=== PATIENT | male | born 1955 | race Caucasian/White ===

== ENCOUNTER 2016-10-14 18:02 | Inpatient (IN) | payer OTHER ==
[~2016-10-14] VITALS: Ht 165.1 cm; Wt 82.6 kg
[~2016-10-14 18:02] MED LIST: GABA100C4 PO; SAW160TA PO; VALA500T PO
[2016-10-14 19:39] VITALS: BP 137/93; PULSE 81; RESP 18; TEMP 98.3; O2SAT 96
[2016-10-14 20:00] LABS: AUTOMATED NEUTROPHIL # 3.2 TH/MM3 (1.8-7.7); BASOPHIL % 0.6 % (0.0-2.0); EOSINOPHIL # 0.1 TH/MM3 (0-0.4); EOSINOPHIL % 1.2 % (0.0-4.0); HEMATOCRIT 37.7 % (39.0-51.0); HEMO FLAGS DIFF FINAL; LYMPHOCYTE # 2.1 TH/MM3 (1.0-4.8); MEAN CELL VOLUME 86.5 FL (80.0-100.0); MEAN CORPUSCULAR HEMOGLOBIN 29.1 PG (27.0-34.0); MEAN CORPUSCULAR HGB CONC 33.6 % (32.0-36.0); MONO % 13.5 % (0.0-8.0); NEUT % 51.7 % (16.0-70.0); PLATELET COUNT 171 TH/MM3 (150-450); RED BLOOD COUNT 4.36 MIL/MM3 (4.50-5.90); RED CELL DISTRIBUTION WIDTH 13.5 % (11.6-17.2); WHITE BLOOD COUNT 6.2 TH/MM3 (4.0-11.0)
[2016-10-14 20:23] LABS: ALKALINE PHOSPHATASE 73 U/L (45-117); ALT (GPT) 100 U/L (12-78); ANION GAP 8 MEQ/L (5-15); AST (GOT) 140 U/L (15-37); BICARBONATE 27.3 MEQ/L (21.0-32.0); BLOOD UREA NITROGEN 16 MG/DL (7-18); CHLORIDE 98 MEQ/L (98-107); GLOMERULAR FILTRATION RATE 78 ML/MIN (>89); SODIUM (NA) 133 MEQ/L (136-145); TOTAL BILIRUBIN ADULT 0.4 MG/DL (0.2-1.0)
[2016-10-14 20:32] LABS: POTASSIUM 4.6 MEQ/L (3.5-5.1)
--- NOTE | 2016-10-14 20:53 | PD ---
HPI Chief Complaint: Psychiatric Symptoms Time Seen by Provider: 20:46 Travel History International Travel<30 days: No Contact w/Intl Traveler<30days: No Traveled to known affect area: No History of Present Illness HPI 61-year-old male that presents to the ED for evaluation psychiatric evaluation. [facility] to [facility] and suicidal ideation. Per patient she's lost multiple people his family recently. Per patient this is exacerbating his depression. Patient is also states having some alcohol abuse. Denies any drugs. No chest pain or shortness of breath. States that he has no plan but feels depressed. Per patient he symptoms are moderate. Nothing makes them better or worse. He is never taken anything for this. Allergy to sulfa. PFSH Past Medical History Genitourinary: Yes (prostate ) Psychiatric: Yes (ptsd) ?: Not Past Surgical History Other Surgery: Yes (rib fractures; left knee repair) Social History Alcohol Use: Yes (etoh abuse) Tobacco Use: Yes (ppd) Substance Use: Yes (6 pack beer/day) Allergies-Medications (Allergen,Severity, Reaction): Coded Allergies: Sulfa (Unverified Allergy, Mild, HIVES, 01/30/16) Reported Meds & Prescriptions Reported Meds & Active Scripts Active Gabapentin 100 Mg Cap 100 Mg PO TID PRN 7 Days Valacyclovir Hcl (Valacyclovir HCl) 500 Mg Tab 1,000 Mg PO Q8HR 7 Days Reported Saw [place] 160 Mg Tab 160 Mg PO DAILY Review of Systems General / Constitutional: No: Fever, Chills, Weight Gain, Weight Loss, Other Eyes: No: Diploplia, Blurred Vision, Photophobia, Drainage, Redness, Foreign Body Sensation, Pain, Tearing, Blind Spots, Visual changes, Blindness, Other HENT: No: Headaches, Vertigo, Lightheadedness, Sore Throat, Rhinitis, Rhinorrhea, Congestion, Nosebleed, Neck Stiffness, Neck Pain, Masses, Gingival Bleeding, Dental Difficulties, Ear Discharge, Earache, Other Cardiovascular: No: Chest Pain or Discomfort, Palpitations, Irregular Rhythm, Tachycardia, Diaphoresis, Syncope, Dyspnea on exertion, Varicosities, Edema, Cyanosis, Varicosities, Phlebitis, Claudication, Other Respiratory: No: Cough, Shortness of Breath, Wheezing, Sneezing, Orthopnea, Hemoptysis, Stridor, Night Sweats, Pleuritic Pain, Other Gastrointestinal: No: Nausea, Vomiting, Diarrhea, Abdominal Pain, Hematemesis, Hematochezia, Constipation, Changes in Bowel Habits, Indigestion, Dysphagia, Loss of Appetite, Other Genitourinary: No: Urgency, Frequency, Dysuria, Nocturia, Hematuria, Decreased Urinary Output, Oliguria, Hesitancy, Dribbling, Incontinence, Pelvic Pain, Flank Pain, Dyspareunia, Discharge, Dysmenorrhea, Menorrhagia, Metorrhagia, Vaginal Bleeding, Other Musculoskeletal: No: Myalgias, Arthralgias, Limited ROM, Weakness, Cramping, Edema, Pain, Atrophy, Other Skin: No Rash, No Itching, No Dryness, No Lumps, No Hives, No Change in Pigmentation, No Change in nails, No Alopecia, No Lesions, No Breast Lumps, No Breast Tenderness, No Breast Swelling, No Other Neurologic: No: Weakness, Dizziness, Syncope, Focal Abnormalities, Coordination Problem, Tremor, Ataxia, Headache, Change in Mentation, Slurred Speech, Paresthesia, Incontinence, Seizures, Sensory Disturbance, Other Psychiatric: Positive: Depression, Suicidal Ideations, Substance Abuse, No: Anxiety, Disorder of Thought, Mood Disorder, Homicidal Ideation, Other Endocrine: No: Heat Intolerance, Cold Intolerance, Polyuria, Polydipsia, Other Hematologic/Lymphatic: No: Easy Bruising, Lymph Node Enlargement, Other Physical Exam Narrative GENERAL: SKIN: Warm and dry. HEAD: Atraumatic. Normocephalic. EYES: Pupils equal and round. No scleral icterus. No injection or drainage. ENT: No nasal bleeding or discharge. Mucous membranes pink and moist. NECK: Trachea midline. No JVD. CARDIOVASCULAR: Regular rate and rhythm. No murmurs, S3, S4. RESPIRATORY: No accessory muscle use. Clear to auscultation. Breath sounds equal bilaterally. GASTROINTESTINAL: Abdomen soft, non-tender, nondistended. Hepatic and splenic margins not palpable. MUSCULOSKELETAL: Extremities without clubbing, cyanosis, or edema. No obvious deformities. Full range of motion of the upper and lower extremities bilaterally. 2+ pulses bilaterally. NEUROLOGICAL: Awake and alert. No obvious cranial nerve deficits. Motor grossly within normal limits. Five out of 5 muscle strength in the arms and legs. Normal speech. PSYCHIATRIC: Appropriate mood and affect; insight and judgment normal. Data Data Last Documented VS Vital Signs Date Time Temp Pulse Resp B/P Pulse Ox O2 Delivery O2 Flow Rate FiO2 10/14/16 19:39 98.3 81 18 137/93 96 Orders Complete Blood Count With Diff (10/14/16 19:41) Comprehensive Metabolic Panel (10/14/16 19:41) Psych Screen (10/14/16 19:41) Drug Screen, Random Urine (10/14/16 19:41) Alcohol (Ethanol) (10/14/16 19:41) Labs Laboratory Tests Test 10/14/16 19:51 White Blood Count 6.2 TH/MM3 Red Blood Count 4.36 MIL/MM3 Hemoglobin 12.7 GM/DL Hematocrit 37.7 % Mean Corpuscular Volume 86.5 FL Mean Corpuscular Hemoglobin 29.1 PG Mean Corpuscular Hemoglobin 33.6 % Concent Red Cell Distribution Width 13.5 % Platelet Count 171 TH/MM3 Mean Platelet Volume 9.8 FL Neutrophils (%) (Auto) 51.7 % Lymphocytes (%) (Auto) 33.0 % Monocytes (%) (Auto) 13.5 % Eosinophils (%) (Auto) 1.2 % Basophils (%) (Auto) 0.6 % Neutrophils # (Auto) 3.2 TH/MM3 Lymphocytes # (Auto) 2.1 TH/MM3 Monocytes # (Auto) 0.8 TH/MM3 Eosinophils # (Auto) 0.1 TH/MM3 Basophils # (Auto) 0.0 TH/MM3 CBC Comment DIFF FINAL Differential Comment Sodium Level 133 MEQ/L Potassium Level 4.6 MEQ/L Chloride Level 98 MEQ/L Carbon Dioxide Level 27.3 MEQ/L Anion Gap 8 MEQ/L Blood Urea Nitrogen 16 MG/DL Creatinine 0.98 MG/DL Estimat Glomerular Filtration 78 ML/MIN Rate Random Glucose 84 MG/DL Calcium Level 8.2 MG/DL Total Bilirubin 0.4 MG/DL Aspartate Amino Transf 140 U/L (AST/SGOT) Alanine Aminotransferase 100 U/L (ALT/SGPT) Alkaline Phosphatase 73 U/L Total Protein 8.6 GM/DL Albumin 3.6 GM/DL Ethyl Alcohol Level 72 MG/DL MDM Medical Decision Making Medical Screen Exam Complete: Yes Emergency Medical Condition: Yes Medical Record Reviewed: Yes Interpretation(s) CBC & BMP Diagram 10/14/16 19:51 LFTs elevated. Alcohol in the 70s Differential Diagnosis Depression versus suicidal ideation versus anxiety versus adjustment disorder versus mood disorder versus bipolar disorder versus schizophrenia versus paranoid disorder versus psychosis versus substance abuse versus alcohol abuse versus alcohol induced psychosis versus homicidality addition versus cutting versus personality disorder Narrative Course 61-year-old male that presents to the ED for eval of psychiatric illness. Patient was properly examined and was found to have signs and symptoms consistent with psychiatric disease. No sign of acute medical distress. Labs were drawn. Patient was medically clear. Okay to be seen by psych. Mental health screening was discussed with the patient. Diagnosis Primary Impression: Depression Qualified Code: F33.1 - Moderate episode of recurrent major depressive disorder Lico Melgoza Oct 14, 2016 20:53
[2016-10-14] MEDS ORDERED: CYCL5TAB PO (23:27)
[2016-10-14] MEDS ORDERED: MELO7.5T4 PO (23:27)
[2016-10-14] MEDS ORDERED: TERA10CA3 PO (23:29)
[2016-10-14] MEDS ORDERED: CENTTAB8 PO (23:29)
[2016-10-14] MEDS ORDERED: CLOTR1%T TOPICAL (23:29)
[2016-10-14] MEDS ORDERED: SILD20TA11 PO (23:29)
[2016-10-14 23:50] LABS: AMPHETAMINE, URINE NEG (NEG); BARBITURATES, URINE NEG (NEG); COCAINE, URINE NEG (NEG)
[2016-10-15] MEDS ORDERED: GABA100C4 PO (00:24)
[2016-10-15 02:08] VITALS: BP 145/79; PULSE 74; RESP 19; O2SAT 97
[2016-10-15 06:28] VITALS: BP 174/84; PULSE 91; RESP 18; O2SAT 97
[2016-10-15] MEDS ORDERED: diphenhydrAMINE HCL 50 MG CAP - HS PRN PO (09:15)
[2016-10-15] MEDS ORDERED: ALUMINUM/MAGNESIUM/SIMETH 30 ML CUP PO PRN ×2 (09:15→16:00)
[2016-10-15] MEDS ORDERED: LORazepam 1 MG TAB PO PRN (09:15)
[2016-10-15] MEDS ORDERED: ACETAMINOPHEN 325 MG TAB PO PRN ×2 (09:15→16:00)
[2016-10-15] MEDS ORDERED: diphenhydrAMINE HCL 50 MG/ML VIAL - HS PRN IM (09:15)
[2016-10-15] MEDS ORDERED: hydrOXYzine HCL 50 MG TAB PO PRN (09:15)
[2016-10-15] MEDS ORDERED: MAGNESIUM HYDROXIDE SUSP 30 ML CUP PO PRN ×2 (09:15→16:00)
[2016-10-15] MEDS ORDERED: LORazepam 2 MG/ML VIAL IM PRN (09:15)
[2016-10-15] MEDS ORDERED: PILL SPLITTER OTHER PRN (09:30)
[2016-10-15 09:40] VITALS: BP 154/85; PULSE 68; RESP 14; TEMP 98.3; O2SAT 96
[2016-10-15] MEDS ORDERED: CYCLOBENZAPRINE HCL 10 MG TAB PO PRN (10:00)
[2016-10-15] MEDS ORDERED: MISOPROSTOL 200 MCG TAB PR ONE (10:00)
[2016-10-15] MEDS ORDERED: GABAPENTIN 100 MG CAP PO PRN (10:00)
[2016-10-15] MEDS: MELOXICAM 7.5 MG TAB PO SCH (11:09)
[2016-10-15] MEDS: NICOTINE 21 MG/24 HR PATCH T-DERMAL SCH (11:11)
[2016-10-15] MEDS ORDERED: FLUMAZENIL 0.5 MG/5 ML VIAL IV PUSH PRN (15:30)
[2016-10-15] MEDS ORDERED: LORazepam 2 MG/ML VIAL IV PUSH PRN ×4 (15:30)
--- NOTE | 2016-10-15 15:57 | HHI.HP ---
Provisional Diagnosis Admission Date Oct 15, 2016 at 08:37 [place]. Bipolar disorder 1 most recent episode mixed severe without psychosis F 31.63 alcohol abuse, opiate abuse Certification of Person's Competence To Provide Express and Informed Consent I have personally examined Girma Jensen , a person being served at [email or web address] on, Oct 15, 2016 15:37. Express and informed consent means consent voluntarily given in writing, by a competent person, after sufficient explanation and disclosure of the subject matter involved to enable the person to make a knowing and willful decision without any element of force, fraud, deceit, duress, or other form of constraint or coercion. This person is 18 years of age or older, is not now known to be incompetent to consent to treatment with a guardian advocate, and does not have a health care surrogate or proxy currently making medical treatment decisions. I have found this person to be one of the following: [] Competent to provide express and informed consent, as defined above, for voluntary admission to this facility and is competent to provide express and informed consent for treatment. He/she has the consistent capacity to make well reasoned, willful, and knowing decisions concerning his or her medical or mental health treatment. The person fully and consistently understands the purpose of the admission for examination/placement and is fully capable of personally exercising all rights assured [place] Incompetent to provide express and informed consent to voluntary admission, and this is incompetent to provide express and informed consent to treatment. The person must be transferred to involuntary status and a petition for a guardian advocate filed with the Circuit Court. [x] Refusing to provide express and informed consent to voluntary admission but is competent to provide express and informed consent for treatment. The person must be discharged or transferred to involuntary status. Form shall be completed within 24 hours of a person's arrival at the receiving facility and filed in the clinical record of each person: 1. Admitted on a voluntary basis 2. Permitted to provide express and informed consent to his/her own treatment 3. Allowed to transfer from involuntary to voluntary status 4. Prior to permitting a person to consent to his or her own treatment after having been previously found incompetent to consent to treatment. History of Present Illness Capacity: Has Capacity HPI Patient is a 61-year-old male comes in under Serra act from the [facility] here in town signed by a Cassandra ramirez PsyD dated 10-29 at 3:45 PM stating bipolar disorder alcohol abuse and opioid abuse seen as walk-in to [facility] clinic stating he tried to OD last night taking 8:30 milligram morphine with alcohol. States he no longer wants to live. Still dated "Mahesh Teddy how much longer door I have to live" and previous SFA jump out of three- story building after his mother . recently went through detox but has relapsed feels he has shamed family is lives alone. Notes he is only keeps immaculate home but his home is dirty in disarray notes he does not want to get out of bed. Patient seen screened in ED urine toxicology positive for opiates blood alcohol level of 74. At the present time patient sitting quietly in his room on 2600 patient seen with medical student Gabrielle. Patient alert oriented short stocky male stating he is markedly depressed with initial and mid insomnia a.m. anergy decreased energy and concentration there is some decrease coping with increased irritability and social isolation there has been increase in his alcohol use of his opiate abuse primarily morphine. He denies any voices or visions with this. He feels quite hopeless to the point where he would take the suicide pill. He has had difficulty with depression over number of years did try to kill himself his as mentioned above after his . He is usually been through detox was up to go directly into a rehabilitation program that is not available at the present time. Tells us that he has an appointment on 10/25 with the domiciliary. It appears she is somewhat estranged from his 2 adult children who both live out of state. Patient denies a prior physical or sexual abuse. Denies any mental illness and his family of origin. 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 At this time patient does meet criteria for acute inpatient psychiatric hospitalization on an involuntary basis I will do first opinion requests a second opinion. With the hospitalist also consult was that this patient. We will order the single protocol discussed as precautionary measure with him. We will offer Remeron 15 mg at at bedtime and 10 mg Abilify in the morning. The need to verify next week also this appointment with the domiciliary Review of Systems Except as stated in HPI: all other systems reviewed are Neg Past Psych History Psychological trauma history Patient denies physical or sexual abuse Violence risk - others (6 mos) Low Violence risk - self (6 mos) Patient states he would take the suicide pill Substance Abuse History Drugs/Alcohol past 12 months Recent alcohol and opiate use Past Family Social History Coded Allergies: Sulfa (Unverified Allergy, Mild, HIVES, 01/30/16) Past Medical History Medically cleared ED Reported Medications Gabapentin 100 Mg [id number] Mg PO TID #90 CAP Ref 0 10/15/16 Clotrimazole Topical 1% Soln1 Applic TOPICAL BID #10 ML Ref 0 10/14/16 Terazosin 10 Mg Cap10 Mg PO HS #30 CAP Ref 0 10/14/16 Multiple Vitamins W/ Minerals (Centrum Adults)1 Tab1 Tab PO DAILY Ref 0 10/14/16 Sildenafil 20 Mg [id number] Mg PO DAILY #90 TAB Ref 0 10/14/16 Meloxicam 7.5 Mg Tab7.5 Mg PO DAILY Ref 0 10/14/16 Cyclobenzaprine (Flexeril)5 Mg Tab5 Mg PO TID PRN (PAIN) #90 TAB Ref 0 10/14/16 Discontinued Reported Medications Saw [place] ([place] Repens) (Saw [place])160 Mg [id number] Mg PO DAILY 10/16/15 Discontinued Scripts Gabapentin 100 Mg [id number] Mg PO TID PRN (PAIN SCALE 1 TO 10) 7 Days Prov:Cyndi Lu 01/30/16 Valacyclovir Hcl 500 Mg Tab1,000 Mg PO Q8HR 7 Days Prov:Cyndi Lu 01/30/16 Current Medications Medications (Trade) Dose Ordered Sig/Kev Route Start Time Stop Time Status Last Admin (Atarax) 50 mg Q6H PRN PO 10/15/16 09:15 (Benadryl) 50 mg HS PRN PO 10/15/16 09:15 (Tylenol) 650 mg Q4H PRN PO 10/15/16 09:15 (Milk Of Magnesia Liq) 30 ml DAILY PRN PO 10/15/16 09:15 (Mag-Al Plus Susp Liq) 30 ml Q6H PRN PO 10/15/16 09:15 (Habitrol 21 Mg Patch.24 Hr) 1 patch DAILY T-DERMAL 10/15/16 10:00 10/15/16 11:11 Miscellaneous Information 1 HS T-DERMAL 10/15/16 21:00 (Flexeril) 5 mg TID PRN PO 10/15/16 10:00 (Pill Splitter) 1 ea UNSCH PRN OTHER 10/15/16 09:30 (Mobic) 7.5 mg DAILY PO 10/15/16 10:00 10/15/16 11:09 (Theragran) 1 tab DAILY PO 10/16/16 10:00 (Hytrin) 10 mg HS PO 10/15/16 21:00 (Neurontin) 100 mg TID PRN PO 10/15/16 10:00 (Remeron) 15 mg HS PO 10/15/16 21:00 (Abilify) 10 mg DAILY PO 10/16/16 09:00 Family History Denies history mental health her addictions and family Social History Patient lives by himself appears to be somewhat estranged from his 2 children Patient's Strengths (min. 2) Patient verbal able access healthcare cooperative Physical Exam Patient seen screened in ED exam reviewed and agreed with vital signs blood pressure 154/85 pulse 68 respirations 14 Vital Signs Vital Signs Date Time Temp Pulse Resp B/P Pulse Ox O2 Delivery O2 Flow Rate FiO2 10/15/16 09:40 98.3 68 14 154/85 96 10/15/16 06:28 Room Air Mental Status Examination And oriented stockily built male sitting calmly in his room along with medical student Gabrielle, cooperative with good eye contact Appearance Clean and neat Speech: Unremarkable Orientation: x3 Memory: Unremarkable Thought Process: Logical Thought Content: Unremarkable Hallucination Type: None Attention and Concentration: Other (fair) Suicidal Ideation: Yes Previous Suicide Attempts: Yes Homicidal Ideation: No Previous Homicide Attempts: No Insight: Fair Judgement: Poor Affect: Other (decreased range and intensity) Mood: Sad Motor Activity: Normal gait Assessment & Plan Problem List: (1) Bipolar I disorder, most recent episode mixed, severe without psychotic features ICD Code: F31.63 Assessment & Plan Estimated LOS: 3-5 days if this that patient meets criteria for involuntary psychiatric consultation the Serra act I'll do first opinion requests a second opinion. I feel he has capacity to sign for his medication. Medication adjustments as mentioned above. We will counselor verify his appointment with the domiciliary on Wednesday 10/18 Discharge Planning To be determined Request HC Surrog/Guard Advoc?: No Richard Juarez MD Oct 15, 2016 15:57
[2016-10-15] MEDS ORDERED: HALOPERIDOL LACTATE 5 MG/ML AMP IM PRN (16:00)
[2016-10-15] MEDS: LORazepam 2 MG TAB PO PRN (17:43)
[2016-10-15 19:23] VITALS: BP 174/86; PULSE 77; RESP 18; O2SAT 98
[2016-10-15] MEDS: MIRTAZAPINE 15 MG TAB PO SCH (20:36)
[2016-10-15] MEDS: TERAZOSIN HCL 5 MG CAP PO SCH (20:36)
[2016-10-15] MEDS: REMOVE OLD NICOTINE PATCH T-DERMAL SCH (20:43)
[2016-10-16 06:19] VITALS: BP 182/91; PULSE 69; RESP 18; TEMP 98; O2SAT 96
[2016-10-16] MEDS: ARIPiprazole 10 MG TAB PO SCH (08:27)
[2016-10-16] MEDS: MELOXICAM 7.5 MG TAB PO SCH (08:27)
[2016-10-16] MEDS: NICOTINE 21 MG/24 HR PATCH T-DERMAL SCH (08:29)
[2016-10-16] MEDS: REMOVE OLD NICOTINE PATCH T-DERMAL SCH (08:29)
[2016-10-16] MEDS ORDERED: NICOTINE 21 MG/24 HR PATCH T-DERMAL SCH (09:00)
[2016-10-16] MEDS: LORazepam 1 MG TAB PO PRN (09:07)
[2016-10-16] MEDS: MULTIVITAMIN TAB PO SCH (10:00)
[2016-10-16 11:32] LABS: ANION GAP 10 MEQ/L (5-15); BICARBONATE 22.3 MEQ/L (21.0-32.0); BLOOD UREA NITROGEN 11 MG/DL (7-18); CHLORIDE 105 MEQ/L (98-107); GLOMERULAR FILTRATION RATE 89 ML/MIN (>89); POTASSIUM 4.1 MEQ/L (3.5-5.1); SODIUM (NA) 137 MEQ/L (136-145)
[2016-10-16 11:35] LABS: HDL CHOLESTEROL 90.3 MG/DL (40.0-60.0); LDL CHOLESTEROL 63 MG/DL (0-99)
[2016-10-16] MEDS: amLODIPine BESYLATE 5 MG TAB PO SCH (13:29)
[2016-10-16] MEDS: LISINOPRIL 10 MG TAB PO SCH (13:29)
--- NOTE | 2016-10-16 14:39 | PD.CONS ---
Provisional Diagnosis Admission Date Oct 15, 2016 at 08:37 [place]. Bipolar disorder 1 most recent episode mixed severe without psychosis F 31.63 alcohol abuse, opiate abuse History of Present Illness Service Psychiatry Consult Requested By Psychiatry Reason for Consult 2nd opinion Primary Care Physician [facility] HPI Pt is a 61 YOHM who presents to [facility] under a BA taken out by psychologist at [place] clinic after he reported SI and attempted OD with morphine and alcohol. Pt reports that he has been increasingly depressed with anhedonia, decline in ADLs , increased alcohol abuse and increased self-isolation. He reports struggling with grief after the lost of his , mother and other family members over the last 4 years. He reportedly attempted suicide after his previously. He reports that he is tolerating medication without side effects. He remains depressed with suicidal ideations, but reports feeling better today. Chart reviewed and pt seen and discussed with staff. Review of Systems Psychiatric: COMPLAINS OF: Mood changes, Depression, Suicidal Ideation Past Family Social History Coded Allergies: Sulfa (Unverified Allergy, Mild, HIVES, 01/30/16) Past Medical History HTN. Reported Medications Gabapentin 100 Mg [id number] Mg PO TID #90 CAP Ref 0 10/15/16 Clotrimazole Topical 1% Soln1 Applic TOPICAL BID #10 ML Ref 0 10/14/16 Terazosin 10 Mg Cap10 Mg PO HS #30 CAP Ref 0 10/14/16 Multiple Vitamins W/ Minerals (Centrum Adults)1 Tab1 Tab PO DAILY Ref 0 10/14/16 Sildenafil 20 Mg [id number] Mg PO DAILY #90 TAB Ref 0 10/14/16 Meloxicam 7.5 Mg Tab7.5 Mg PO DAILY Ref 0 10/14/16 Cyclobenzaprine (Flexeril)5 Mg Tab5 Mg PO TID PRN (PAIN) #90 TAB Ref 0 10/14/16 Discontinued Reported Medications Saw [place] (Serenoa Repens) (Saw [place])160 Mg [id number] Mg PO DAILY 10/16/15 Discontinued Scripts Gabapentin 100 Mg [id number] Mg PO TID PRN (PAIN SCALE 1 TO 10) 7 Days Prov:Cyndi Lu 01/30/16 Valacyclovir Hcl 500 Mg Tab1,000 Mg PO Q8HR 7 Days Prov:Cyndi Lu 01/30/16 Current Medications Medications (Trade) Dose Ordered Sig/Kev Route Start Time Stop Time Status Last Admin (Benadryl) 50 mg HS PRN PO 10/15/16 09:15 (Milk Of Magnesia Liq) 30 ml DAILY PRN PO 10/15/16 09:15 (Habitrol 21 Mg Patch.24 Hr) 1 patch DAILY T-DERMAL 10/15/16 10:00 10/16/16 08:29 Miscellaneous Information 1 HS T-DERMAL 10/15/16 21:00 10/16/16 08:29 (Flexeril) 5 mg TID PRN PO 10/15/16 10:00 (Pill Splitter) 1 ea UNSCH PRN OTHER 10/15/16 09:30 (Mobic) 7.5 mg DAILY PO 10/15/16 10:00 10/16/16 08:27 (Theragran) 1 tab DAILY PO 10/16/16 10:00 10/16/16 10:00 (Hytrin) 10 mg HS PO 10/15/16 21:00 10/15/16 20:36 (Neurontin) 100 mg TID PRN PO 10/15/16 10:00 (Remeron) 15 mg HS PO 10/15/16 21:00 10/15/16 20:36 (Abilify) 10 mg DAILY PO 10/16/16 09:00 10/16/16 08:27 (Tylenol) 650 mg Q4H PRN PO 10/15/16 16:00 (Milk Of Magnesia Liq) 30 ml DAILY PRN PO 10/15/16 16:00 (Mag-Al Plus Susp Liq) 30 ml Q6H PRN PO 10/15/16 16:00 (Atarax) 50 mg Q6H PRN PO 10/15/16 16:00 (Romazicon Inj) 0.2 mg Q1M PRN IV PUSH 10/15/16 15:30 (Ativan) 1 mg Q4H PRN PO 10/15/16 15:30 10/16/16 09:07 (Ativan Inj) 1 mg Q4H PRN IV PUSH 10/15/16 15:30 (Ativan) 2 mg Q2H PRN PO 10/15/16 15:30 10/15/16 17:43 (Ativan Inj) 2 mg Q2H PRN IV PUSH 10/15/16 15:30 (Ativan Inj) 2 mg Q1H PRN IV PUSH 10/15/16 15:30 (Ativan Inj) 2 mg Q15M PRN IV PUSH 10/15/16 15:30 (Haldol Inj) 2 mg Q15M PRN IM 10/15/16 16:00 (Norvasc) 5 mg DAILY PO 10/16/16 13:00 10/16/16 13:29 (Prinivil) 10 mg DAILY PO 10/16/16 13:00 10/16/16 13:29 Family History denies family hx of mental illness Social History LIves alone, , hx of service ([employer]) Patient's Strengths (min. 2) verbal, access to care Physical Exam Vital Signs Vital Signs Date Time Temp Pulse Resp B/P Pulse Ox O2 Delivery O2 Flow Rate FiO2 10/16/16 06:19 98.0 69 18 182/91 96 10/15/16 06:28 Room Air Mental Status Examination Speech: Unremarkable Orientation: x3 Memory: Unremarkable Thought Process: Logical Thought Content: Unremarkable Hallucination Type: None Attention and Concentration: Other (fair) Suicidal Ideation: Yes Previous Suicide Attempts: Yes Homicidal Ideation: No Previous Homicide Attempts: No Insight: Fair Judgement: Poor Affect if Inappropriate: Flat Mood: Sad Motor Activity: Normal gait Assessment & Plan Problem List: (1) Bipolar I disorder, most recent episode mixed, severe without psychotic features ICD Code: F31.63 Assessment & Plan I agree that pt meets criteria for involuntary hospitalization as is actively suicidal. 2nd opinion paperwork completed. Estimated LOS: days Request HC Surrog/Guard Advoc?: Dorcas Jeffers MD Oct 16, 2016 14:39
--- NOTE | 2016-10-16 15:29 | PD.CONS ---
[facility] Service [place] [facility] Consult Requested By Psychiatry Reason for Consult Medical management Primary Care Physician [facility] Diagnoses: History of Present Illness Mr. Jensen is a pleasant 61-year-old male who presented to the emergency department on 10/14/2016 for psychiatric evaluation. Patient was [facility]ra acted by the [employer] due to depression and suicidal ideation. Per ED documentation, patient recently lost multiple family members and subsequently has a started drinking alcohol quite a bit. Patient denies any chest pain, shortness of breath, fever or chills. He reports no history of high blood pressure. However in the psychiatric unit his blood pressure has been elevated. Last blood pressure 182/91, heart rate 69. At the time of this interview, patient denies any headache, chest pain, fever or chills. Denies any changes in bowel or bladder habits. Review of Systems ROS Limitations: Other (none except as noted in the history of present illness) Past Family Social History Allergies: Coded Allergies: Sulfa (Unverified Allergy, Mild, HIVES, 01/30/16) Past Medical History Benign prostatic hyperplasia Left shoulder injury Past Surgical History Rib fractures and left knee repair. Reported Medications Patient does not take any medication on a regular basis. Active Ordered Medications Current Medications Lorazepam (Ativan) 1 mg Q6H PRN PO MODERATE TO SEVERE ANXIETY; Start 10/15/16 at 09:15; Stop 10/15/16 at 15:26; Status DC Lorazepam (Ativan Inj) 1 mg Q6H PRN IM MODERATE TO SEVERE ANXIETY; Start at 09:15; Stop 10/15/16 at 15:26; Status DC Hydroxyzine HCl (Atarax) 50 mg Q6H PRN PO ANXIETY; Start 10/15/16 at 09:15; Stop 10/15/16 at 15:45; Status DC Diphenhydramine HCl (Benadryl) 50 mg HS PRN PO INSOMNIA; Start 10/15/16 at 09:15 Diphenhydramine HCl (Benadryl Inj) 50 mg HS PRN IM INSOMNIA; Start 10/15/16 at 09:15; Stop 10/15/16 at 15:26; Status DC Acetaminophen (Tylenol) 650 mg Q4H PRN PO Pain 1-5 or Temp >101F; Start at 09:15; Stop 10/15/16 at 15:42; Status DC Magnesium Hydroxide (Milk Of Magnesia Liq) 30 ml DAILY PRN PO CONSTIPATION; Start 10/15/16 at 09:15 Al Hydrox/Mg Hydrox/Simethicone (Mag-Al Plus Susp Liq) 30 ml Q6H PRN PO DYSPEPSIA; Start 10/15/16 at 09:15; Stop 10/15/16 at 15:43; Status DC Nicotine (Habitrol 21 Mg Patch.24 Hr) 1 patch DAILY T-DERMAL Last administered on 10/16/16 08:29; Start 10/15/16 at 10:00 Miscellaneous Information 1 HS T-DERMAL Last administered on 10/16/16 08:29; Start 10/15/16 at 21:00 Cyclobenzaprine HCl (Flexeril) 5 mg TID PRN PO PAIN; Start 10/15/16 at 10:00 Miscellaneous (Pill Splitter) 1 ea UNSCH PRN OTHER SEE LABEL COMMENTS; Start at 09:30 Meloxicam (Mobic) 7.5 mg DAILY PO Last administered on 10/16/16 08:27; Start at 10:00 Multivitamins (Theragran) 1 tab DAILY PO Last administered on 10/16/16 10:00; Start 10/16/16 at 10:00 Misoprostol (Cytotec) 600 mcg NOW ONCE CO ; Start 10/15/16 at 10:00; Stop at 10:01; Status Cancel Terazosin HCl (Hytrin) 10 mg HS PO Last administered on 10/15/16 20:36; Start 10/15/16 at 21:00 Gabapentin (Neurontin) 100 mg TID PRN PO NEUROPATHIC PAIN; Start 10/15/16 at 10: 00 Mirtazapine (Remeron) 15 mg HS PO Last administered on 10/15/16 20:36; Start at 21:00 Aripiprazole (Abilify) 10 mg DAILY PO Last administered on 10/16/16 08:27; Start 10/16/16 at 09:00 Acetaminophen (Tylenol) 650 mg Q4H PRN PO Pain 1-5 or Temp >101F; Start at 16:00 Magnesium Hydroxide (Milk Of Magnesia Liq) 30 ml DAILY PRN PO CONSTIPATION; Start 10/15/16 at 16:00 Al Hydrox/Mg Hydrox/Simethicone (Mag-Al Plus Susp Liq) 30 ml Q6H PRN PO DYSPEPSIA; Start 10/15/16 at 16:00 Nicotine (Habitrol 21 Mg Patch.24 Hr) 1 patch DAILY T-DERMAL ; Start 10/16/16 at 09:00; Stop 10/16/16 at 09:00; Status DC Hydroxyzine HCl (Atarax) 50 mg Q6H PRN PO ANXIETY; Start 10/15/16 at 16:00 Flumazenil (Romazicon Inj) 0.2 mg Q1M PRN IV PUSH SEE LABEL COMMENTS; Start 10/15/16 at 15:30 Lorazepam (Ativan) 1 mg Q4H PRN PO CIWA 8 - 10 Last administered on 10/16/16 09 :07; Start 10/15/16 at 15:30 Lorazepam (Ativan Inj) 1 mg Q4H PRN IV PUSH CIWA 8 - 10; Start 10/15/16 at 15:30 Lorazepam (Ativan) 2 mg Q2H PRN PO CIWA 11-14 Last administered on 10/15/16 17: 43; Start 10/15/16 at 15:30 Lorazepam (Ativan Inj) 2 mg Q2H PRN IV PUSH CIWA 11-14; Start 10/15/16 at 15:30 Lorazepam (Ativan Inj) 2 mg Q1H PRN IV PUSH CIWA 15-20; Start 10/15/16 at 15:30 Lorazepam (Ativan Inj) 2 mg Q15M PRN IV PUSH CIWA > 20; Start 10/15/16 at 15:30 Haloperidol Lactate (Haldol Inj) 2 mg Q15M PRN IM SEE LABEL COMMENTS; Start 10/15/16 at 16:00 Amlodipine Besylate (Norvasc) 5 mg DAILY PO Last administered on 10/16/16 13:29 ; Start 10/16/16 at 13:00 Lisinopril (Prinivil) 10 mg DAILY PO Last administered on 10/16/16 13:29; Start 10/16/16 at 13:00 Family History Family history significant for heart disease. Brother had prostate cancer. Social History Patient smokes about 1 pack a day. Drinks 4 packs a day. Denies any use of illicit drugs. Physical Exam Vital Signs Vital Signs Date Time Temp Pulse Resp B/P Pulse Ox O2 Delivery O2 Flow Rate FiO2 10/16/16 06:19 98.0 69 18 182/91 96 10/15/16 19:23 77 18 174/86 98 Physical Exam GENERAL: This is a well-nourished, well-developed patient, in no apparent distress. SKIN: No rashes, ecchymoses or lesions. Warm and dry. HEAD: Atraumatic. Normocephalic. No temporal or scalp tenderness. EYES: Pupils equal round and reactive. No injection or drainage. ENT: Nose without bleeding, purulent drainage or septal hematoma. Airway patent. NECK: Trachea midline. No lymphadenopathy. Supple, nontender, no meningeal signs. CARDIOVASCULAR: Regular rate and rhythm without murmurs, gallops, or rubs. No JVD. RESPIRATORY: Clear to auscultation. Breath sounds equal bilaterally. No wheezes , rales, or rhonchi. GASTROINTESTINAL: Abdomen soft, non-tender, nondistended. No guarding. MUSCULOSKELETAL: Extremities without clubbing, cyanosis, or edema. NEUROLOGICAL: Awake and alert. Cranial nerves II through XII intact. No focal neurological deficits. Normal speech. Laboratory Laboratory Tests Test 10/16/16 10:43 Sodium Level 137 Potassium Level 4.1 Chloride Level 105 Carbon Dioxide Level 22.3 Anion Gap 10 Blood Urea Nitrogen 11 Creatinine 0.87 Estimat Glomerular Filtration 89 Rate Random Glucose 126 Calcium Level 9.0 Triglycerides Level 75 Cholesterol Level 168 LDL Cholesterol 63 HDL Cholesterol 90.3 Cholesterol/HDL Ratio 1.86 Result Diagram: 10/14/16195010/16/16 1043 Assessment and Plan Problem List: (1) Bipolar I disorder, most recent episode mixed, severe without psychotic features ICD Code: F31.63 Status: Acute (2) Depression ICD Code: F32.9 Status: Acute (3) HTN (hypertension) ICD Code: I10 Status: Acute (4) Tobacco abuse ICD Code: Z72.0 Status: Acute Assessment and Plan Mr. Jensen is a 61-year-old who was admitted under Serra act due to suicidal ideations. Hospitalist service was consulted for hypertension. - Bipolar disorder - Depression - Management per psychiatry team. - Hypertension - Possibly chronic. Will start patient on amlodipine 5 mg daily and lisinopril 10 mg daily. - Adjust medications as needed. - Also discussed with patient regarding lifestyle modification including low salt diet, Fish for some vegetables in diet, daily exercise. - Alcohol abuse - Tobacco abuse - Counseled patient regarding alcohol and tobacco abuse. Patient appears to be motivated to quit alcohol and tobacco. - Continue nicotine patch and CIWA protocol Thank you for the consult. We will continue to follow this patient with you. Problem Qualifiers (1) Depression: Qualified Code: F33.1 - Moderate episode of recurrent major depressive disorder Agustin Dominguez DO Oct 16, 2016 15:28
[2016-10-16 15:58] LABS: HEMOGLOBIN A1a 1.2 %; HEMOGLOBIN A1b 0.9 %; HEMOGLOBIN Ao 84.3 %; HEMOGLOBIN F 0.8 %; HEMOGLOBIN LA1C 2.3 %; HEMOGLOBIN P3 4.2 %
[2016-10-16 18:26] VITALS: BP 161/81; PULSE 86; RESP 18; TEMP 98.7; O2SAT 97
[2016-10-16] MEDS ORDERED: LOPERAMIDE HCL 2 MG CAP PO PRN (19:15)
[2016-10-16] MEDS ORDERED: LOPERAMIDE HCL 2 MG CAP PO ONE (19:15)
[2016-10-16] MEDS: TERAZOSIN HCL 5 MG CAP PO SCH (19:44)
[2016-10-16] MEDS: hydrOXYzine HCL 50 MG TAB PO PRN (19:44)
[2016-10-16] MEDS: MIRTAZAPINE 15 MG TAB PO SCH (19:45)
[2016-10-17] MEDS: LORazepam 2 MG TAB PO PRN (01:06)
[2016-10-17 06:26] VITALS: BP 168/89; PULSE 78; RESP 17; TEMP 97.4; O2SAT 100
[2016-10-17] MEDS: amLODIPine BESYLATE 5 MG TAB PO SCH (08:23)
[2016-10-17] MEDS: MULTIVITAMIN TAB PO SCH (08:23)
[2016-10-17] MEDS: MELOXICAM 7.5 MG TAB PO SCH (08:23)
[2016-10-17] MEDS: LISINOPRIL 10 MG TAB PO SCH (08:23)
[2016-10-17] MEDS: ARIPiprazole 10 MG TAB PO SCH (08:23)
[2016-10-17] MEDS: NICOTINE 21 MG/24 HR PATCH T-DERMAL SCH (08:26)
[2016-10-17 18:00] VITALS: BP 173/96; PULSE 77; RESP 16; TEMP 98.3; O2SAT 97
[2016-10-17] MEDS: REMOVE OLD NICOTINE PATCH T-DERMAL SCH (20:06)
[2016-10-17] MEDS: MIRTAZAPINE 15 MG TAB PO SCH (20:06)
[2016-10-17] MEDS: TERAZOSIN HCL 5 MG CAP PO SCH (20:06)
[2016-10-17] MEDS: hydrOXYzine HCL 50 MG TAB PO PRN (20:06)
--- NOTE | 2016-10-17 20:12 | HHI.PYPN ---
Subjective Remarks Pt seen and discussed with treatment team. He received ativan x1 last night for w/d tremors. He denies w/d symptoms today. He reports that mood is more hopeful today. He has been out of room more. No medication side effects. Objective Alert: Yes [place]: Person, Place, Date, Situation Mood: Depressed Affect: Restricted Memory Intact: Immediate, Recent, Remote Hallucinations: Other (none) Delusions: No Delusion Type: Other (none) Suicidal: Plan (none), Ideation (vague, less intense) Homicidal: Ideation (denies) Insight/Judgement fair Vitals/IOs Vital Signs Date Time Temp Pulse Resp B/P Pulse Ox O2 Delivery O2 Flow Rate FiO2 10/17/16 18:00 98.3 77 16 173/96 97 10/15/16 06:28 Room Air Assessment & Plan Problem List: (1) Bipolar I disorder, most recent episode mixed, severe without psychotic features ICD Code: F31.63 Assessment & Plan Continue current tx plan. Estimated LOS: days Justification for Cont. Inpt. safety Request HC Surrog/Guard Advoc?: Dorcas Jeffers MD Oct 17, 2016 20:12
[2016-10-17] MEDS: LORazepam 1 MG TAB PO PRN (22:52)
[2016-10-18 05:55] VITALS: BP 138/83; PULSE 78; RESP 18; TEMP 98.1; O2SAT 97
[2016-10-18] MEDS: NICOTINE 21 MG/24 HR PATCH T-DERMAL SCH (09:00)
[2016-10-18] MEDS: amLODIPine BESYLATE 5 MG TAB PO SCH (09:29)
[2016-10-18] MEDS: MELOXICAM 7.5 MG TAB PO SCH (09:29)
[2016-10-18] MEDS: MULTIVITAMIN TAB PO SCH (09:29)
[2016-10-18] MEDS: LISINOPRIL 10 MG TAB PO SCH (09:29)
[2016-10-18] MEDS: ARIPiprazole 10 MG TAB PO SCH (09:29)
--- NOTE | 2016-10-18 10:07 | HHI.DS ---
Psychiatry Discharge Summary Inpatient Psychiatric care?: Yes Advance Directive: No Reason Not Provided: Due to Patient Condition Mental Health AdvanceDirective: No Health Care Proxy: No Admission Admission Date Oct 15, 2016 at 08:37 Admission Diagnosis: (1) Bipolar I disorder, most recent episode mixed, severe without psychotic features ICD Code: F31.63 (2) Depression ICD Code: F32.9 Brief History Pt is a 61 YOHM who presents to [facility] under a BA taken out by psychologist at [facility] after he reported SI and attempted OD with morphine and alcohol. Pt reports that he has been increasingly depressed with anhedonia, decline in ADLs , increased alcohol abuse and increased self-isolation. He reports struggling with grief after the lost of his , mother and other family members over the last 4 years. He reportedly attempted suicide after his previously. He reports that he is tolerating medication without side effects. He remains depressed with suicidal ideations, but reports feeling better today. Chart reviewed and pt seen and discussed with staff. Tobacco Use In Past 30 Days: No Tobacco Past 30 Days Alcohol Use: Monthly or Less Hospital Course Patient was started on supportive treatment. He was also observed for any withdrawal symptoms. Patient claimed that he has a problem drinking and is going to go to [facility] for 3 months inpatient program on Tuesday he has to go to a [employer] officer to get his test done for alcohol. And Tuesday he has a last date of the court he feels that he is better and willing to stay day abstain from any alcohol use and her abuse and go for further treatment. He has a friend was going to help him. He denied any suicidal ideation intentions or plan. No behavior or management problem reported at that time arrangements were made for him to be discharged and follow-up as an outpatient with the [facility] Results Blood Pressure 138 / 83 Vital Signs Date Time Temp Pulse Resp B/P Pulse Ox O2 Delivery O2 Flow Rate FiO2 10/18/16 05:55 98.1 78 18 138/83 97 10/15/16 06:28 Room Air Laboratory Tests Test 10/16/16 10:43 Random Glucose 126 MG/DL (74-106) HDL Cholesterol 90.3 MG/DL (40.0-60.0) Laboratory Results Test 10/16/16 10:43 Hemoglobin A1c 5.8 % (4.3-6.0) Triglycerides Level 75 MG/DL (42-150) Cholesterol Level 168 MG/DL (120-200) LDL Cholesterol 63 MG/DL (0-99) HDL Cholesterol 90.3 MG/DL (40.0-60.0) Summary of Major Lab Results Nothing significant Summary of Procedures None Imaging None Pending results at discharge: No Medications # of Antipsychotic meds at D/C: 1 Appropriate >1 Antipsych meds?: 2 Approp Antipsych med options 1 - Minimum of three failed multiple trials of monotherapy. Discharge Discharge Date: Oct 18, 2016 Discharge Diagnosis: (1) Bipolar I disorder, most recent episode mixed, severe without psychotic features Diagnosis: Principal ICD Code: F31.63 (2) Depression Diagnosis: Principal ICD Code: F32.9 Mental Status Exam at Disch Patient was alert oriented 3 cooperative casually dressed. His speech was clear spontaneous. He denied any suicidal ideation intentions or plan. He is willing to go to his multisensor intelligence officer" and then to the [facility] for long-term treatment. He is willing to abstain from any alcohol use and/or abuse. Denied any auditory or visual hallucinations. Pt Condition on Discharge: Stable Discharge Disposition: Discharge Home Discharge Instructions Diet Instructions: As Tolerated, No Restrictions Activities you can perform: Regular-No Restrictions Scheduled Appointment: [facility] Discharge Time <= 30 minutes Discharge/Advance Care Plan Health Problems: (1) Bipolar I disorder, most recent episode mixed, severe without psychotic features Goals to promote your health * To prevent worsening of your condition and complications * To maintain your health at the optimal level Directions to meet your goals Take your medications as prescribed Follow your dietary instruction Follow activity as directed Keep your appointments as scheduled Take your immunizations and boosters as scheduled If your symptoms worsen call your PCP, if no PCP go to Urgent Care Center or Emergency Room For 07/03 questions related to your inpatient stay or results of tests pending at discharge, please contact Dr. Mumtaz Millan at Smoking is Dangerous to Your Health. Avoid second hand smoking Problem Qualifiers (1) Depression: Qualified Code: F33.1 - Moderate episode of recurrent major depressive disorder Mumtaz Millan MD Oct 18, 2016 10:07
[2016-10-18] MEDS ORDERED: ARIP1TAB12 PO (10:09)
[2016-10-18] MEDS ORDERED: MIRTA15 PO (10:09)
== END 2016-10-18 11:00 | disposition home or self-care (01) | DRG 885 ==
LOC: NEPJ 18:02 → NEDA 10-15 08:37 → H260 10-15 09:30
PROVIDERS: ADMIT Psychiatry & Neurology Psychiatry; ATTEND Psychiatry & Neurology Psychiatry
DX: F31.63 Bipolar disorder, current episode mixed, severe, without psychotic features (principal); R45.851 Suicidal ideations; I10 Essential (primary) hypertension; F11.10 Opioid abuse, uncomplicated; F10.10 Alcohol abuse, uncomplicated; Y90.3 Blood alcohol level of 60-79 mg/100 ml; F43.10 Post-traumatic stress disorder, unspecified; F17.210 Nicotine dependence, cigarettes, uncomplicated; N40.0 Benign prostatic hyperplasia without lower urinary tract symptoms; Z88.2 Allergy status to sulfonamides; Z91.5 Personal history of self-harm; Z63.8 Other specified problems related to primary support group
CPT/HCPCS: 80048; 80053; 80061; 80307; 80320; 83036; 85025; 99284; Q0163